=== PATIENT | female | born 1955 | race Caucasian/White ===

== ENCOUNTER → 2016-06-13 | Outpatient (CLI) | payer OTHER ==
[2016-06-13 12:21] LABS: ASPARTATE AMINO TRANSFERASE 42 IU/L (8-39); BILIRUBIN,TOTAL 0.6 mg/dL (0.3-1.2); BLOOD UREA NITROGEN 13 mg/dL (7-22); BUN/CREATININE RATIO 21.66 (6-20); CALCIUM 10.1 mg/dL (8.7-10.7); CHLORIDE 101 meq/L (98-112); CREATININE 0.6 mg/dL (0.50-1.20); EST GLOMERULAR FILTRATION > 60 (>60 ml/min/1.73m(2)); GLUCOSE 83 mg/dL (78-110); POTASSIUM 4.4 meq/L (3.8-5.2); SODIUM 137 meq/L (135-145); TOTAL PROTEIN 7.8 g/dL (6.1-8.0)
[2016-06-13 13:42] LABS: HEMATOCRIT 43.1 % (37.0-47.0); HEMOGLOBIN 14.5 g/dL (12.0-16.0); MEAN CORPUSCULAR HEMOGLOBIN 30.9 PG (27-31); MEAN CORPUSCULAR HGB CONC 33.6 g/dL (33-37); MEAN PLATELET VOLUME 8.9 FL (7.4-12.2); RDW COEFFICIENT OF VARIATION 14.9 % (11.5-14.5); RED BLOOD COUNT 4.69 10^6/uL (4.20-5.40); WHITE BLOOD COUNT 13.66 10^3/uL (4.8-10.8)
[2016-06-13 17:39] LABS: BAND NEUTROPHILS % 1 % (0-10); BASOPHILS % (MANUAL) 0 % (0-1); EOSINOPHILS % (MANUAL) 1 % (0-8); LYMPHOCYTES % (MANUAL) 15 % (10-50); MONOCYTES % (MANUAL) 6 % (0-12); NEUTROPHILS % (MANUAL) 77 % (50-80); PLATELET MORPHOLOGY COMMENT NORMAL MORPHOLOGY (NORM)
[2016-06-15 13:58] LABS: HCV AB SCREEN Negative (Negative)
== END ==
LOC: MOB LAB 10:29
PROVIDERS: ATTEND Student in an Organized Health Care Education/Training Program
DX: R10.84 Generalized abdominal pain (principal); R19.7 Diarrhea, unspecified; D72.829 Elevated white blood cell count, unspecified; R94.5 Abnormal results of liver function studies; F17.210 Nicotine dependence, cigarettes, uncomplicated
CPT/HCPCS: 36415; 80053; 84443; 85007; 85027; 86803

== ENCOUNTER → 2016-07-18 | Outpatient (CLI) | payer OTHER ==
[2016-07-18 12:33] LABS: CREATININE 0.6 mg/dL (0.50-1.20)
--- NOTE | 2016-07-19 10:37 | DI ---
CT ABDOMEN SCAN WITH IV CONTRAST, 07/18/2016 12:15 PM : Clinical History: Diarrhea. Previous Exam: None at this facility. Scans are performed from the lower lung bases through the liver and kidneys with IV contrast. 75 ml o f Isovue 300 was injected IV. Low density oral barium contrast (Volumen - low density CT enterography oral contrast) was administered for all phases of the exam. The lung bases are clear. The liver is normal. The patient is status post cholecystectomy and the com mon bile duct measures 8 mm. There is no abnormality of the spleen, pancreas, and adrenal glands. The re are calcifications in proximity to the pancreatic tail but these are actually in the splenic arter y. Both kidneys are normal in size, shape, position and contour. There is no hydronephrosis or hydrou reter. No renal or ureteral calculi are present. There are no abnormal retrocrural or periaortic node s. No ascites is present. READING: Normal CT abdomen scan. CT PELVIS SCAN WITH IV CONTRAST, 07/18/2016 12:15 PM: Clinical History: See above. Previous Exam: None at this facility. Scans are performed from just superior to the umbilicus to the symphysis pubis with IV contrast. This is the same bolus of contrast used for the CT scans of the abdomen. Scans through the lower abdomen and pelvis show no masses or abnormal fluid collections. There is no adenopathy. There is a small tubular structure located in the right side of the pelvis adjacent to th e fluid-filled cecum that I believe represents the appendix. There is no inflammatory mass either in the cecum or in the right lower quadrant. The jejunum has a normal appearance. There is a length of d istal ileum including the terminal ileum that shows abnormal wall thickening and mucosal enhancement with some suggestion of infiltrative/inflammatory change involving the mesenteric fat associated with these areas of abnormal distal ileum. This involves a length of 25-30 cm and is consistent with Croh n's disease, probably of the late adult onset type. The colon is normal. There are no hernias. The pa tiemonique is status post hysterectomy and bilateral salpingo-oophorectomy. READIN. There are inflammatory changes involving the distal 25-30 cm of ileum and ileocecal valve that ar e consistent with Crohn's disease. The cecum is not involved. There is a structure that I believe rep resents the appendix and it also is normal. There is no ascites. 2. The remainder of the examination is normal.
[2016-07-20 07:24] LABS: PARASITIC EXAM FIN 1608 (())
== END ==
LOC: CT 12:08
PROVIDERS: ATTEND Student in an Organized Health Care Education/Training Program
DX: D72.829 Elevated white blood cell count, unspecified (principal); R10.84 Generalized abdominal pain; R19.7 Diarrhea, unspecified; R94.5 Abnormal results of liver function studies; F17.210 Nicotine dependence, cigarettes, uncomplicated
CPT/HCPCS: 36415; 74177; 82272; 82565; 84520; 87046; 87177; 87205; 87209